=== PATIENT | male | born 1975 | race Caucasian/White ===

== ENCOUNTER → 2017-02-26 | Outpatient (REF) | payer BC ==
[2017-02-26 12:40] LABS: BASOPHILS % (AUTO) 0 % (0-2); EOSINOPHILS # (AUTO) 0.1 10^3uL; EOSINOPHILS % (AUTO) 1 % (0-4); LYMPHOCYTES # (AUTO) 1.8 X10^3; MEAN CORPUSCULAR HEMOGLOBIN 30.5 PG (26.0-34.0); MEAN CORPUSCULAR HGB CONC 34.7 g/dL (31.0-37.0); MEAN CORPUSCULAR VOLUME 88 FL (80-100); MONOCYTES # (AUTO) 0.6 X10^3; MONOCYTES % (AUTO) 9 % (3-11); NEUTROPHILS # (AUTO) 3.7 X10^3; NEUTROPHILS % (AUTO) 60 % (51-67); PLATELET COUNT 269 10^3uL (150-450); WHITE BLOOD COUNT 6.19 10^3uL (4.0-11.0)
[2017-02-26 12:51] LABS: ANION GAP 15.9 MEQ/L (3-15)
[2017-02-26 13:19] LABS: ERYTHROCYTE SEDIMENTATION RT* 6 mm/hr (0-12)
== END ==
LOC: LAB 12:11
PROVIDERS: ATTEND Nurse Practitioner Family
DX: Z51.81 Encounter for therapeutic drug level monitoring (principal); Z79.899 Other long term (current) drug therapy; M10.071 Idiopathic gout, right ankle and foot
CPT/HCPCS: 80048; 84550; 85025; 85652; 86140